=== PATIENT | female | born 2005 | race Caucasian/White ===

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

== ENCOUNTER 2025-08-04 14:22 | Outpatient (AMB) | payer OTHER, SELFPAY ==
--- NOTE | 2025-08-04 14:24 | AM.OFFWIN_ITS ---
Intake Vital Signs 08/04/25 14:25 Weight 125 lb BP 120/78 Blood Pressure Location Lt brachial Position Sitting Respiration 16 Pulse 66 Pulse Source Pulse Oximeter Temp 97.9 F Temp Source Oral Pulse Oximetry (%) 99 Oxygen Delivery Method Room Air Intake Visit Reasons: kerwin herring Allergies No Known Allergies Allergy (Verified 08/04/25 16:11) Medication List - Last Reconciled 08/04/25 by Stephen Almazan MD No Known Home Meds HPI ep nima HPI Details History of Present Illness The patient is a 20-year-old female presenting with the need for immunization status evaluation. And physical exam for [facility] Missing Immunization Status: - The patient reported uncertainty about her immunization status for multiple vaccines. - Vaccines discussed include Tdap, MMR, Hepatitis B, and Varicella. - A blood test for vaccine titers was pr oposed to determine immunity. - The patient expressed a need for proof of completed immunizations for school and volunteering requirements. Medical History: - No medical problems reported. - No known allergies to medications or o ther substances. Social History: - The patient is currently attending [employer]. 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 - The patient denied experiencing nausea , vomiting, diarrhea, constipation, chest pain, or shortness of breath. Health Maintenance - lab test order to evaluate titers for immunizations Medications - The patient reported taking no medicat ions. 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 Patient Instructions - Return for blood test to check vaccina tion status, preferably tomorrow. - Contact the office by the end of next week to inquire if the immunization report is ready. - Directions provided for proceeding to the location for the blood test. Review of Systems - General: No fever no chills - Neurological: No headaches no dizzin ess - Ear nose throat: No sore throat no hearing difficulty no ear pain - Cardiovascular: No syncope, no chest pain, no palpitations - Gastrointestinal: No nausea vomiting or diarrhea - Endocrine: No polyuria polydipsia no heat intolerance - Genitourinary: No dysuria - Skin: No new complaints Physical Exam General: Cooperative, healthy appearing, comfortable, no acute distress Orientation: Patient oriented x3 Limitations: None Head: Normal to inspection Ears: Within normal limit visually Nose: Normal external nose present Face and sinus: Normal facial exam Eyes: Appearance normal, extraocular movement intact pupils reactive Neck: Normal visual inspection and supple Respiratory: Normal respiratory effort and able to speak in complete sentences. Clear to auscultation, no stridor Cardiovascular: S1 and S2 RRR GI: Normal to inspection. Soft to palpation and nontender Skin: Turgor normal, no acute findings Neuro: Patient oriented x3, motor sensory intact, balance intact, tandem pass Extremities: Normal to inspection Physical Exam Vital Signs: Last Vital Signs Temp 97.9 F 08/04/25 14:25 Pulse 66 08/04/25 14:25 Resp 16 08/04/25 14:25 BP 120/78 08/04/25 14:25 Pulse Ox 99 08/04/25 14:25 Oxygen Delivery Method Room Air 08/04/25 14:25 Assessment & Plan Assessment & Plan (1) Encounter for general adult medical examination without abnormal findings: Code(s): Z00.00 - Encounter for general adult medical examination without abnormal findings (2) Immunizations incomplete: Code(s): Z28.39 - Other underimmunization status Plan History of Present Illness The patient is a 20-year-old female presenting with the need for immunization status evaluation. And physical exam for [facility] Missing Immunization Status: - The patient reported uncertainty about her immunization status for multiple vaccines. - Vaccines discussed include Tdap, MMR, Hepatitis B, and Varicella. - A blood test for vaccine titers was proposed to determine immunity. - The patient expressed a need for proof of completed immunizations for school and volunteering requirements. Medical History: - No medical problems reported. - No known allergies to medications or other substances. Social History: - The patient is currently attending college. 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 - The patient denied experiencing nausea, vomiting, diarrhea, constipation, chest pain, or shortness of breath. Health Maintenance - lab test order to evaluate titers for immunizations Medications - The patient reported taking no medications. 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 Patient Instructions - Return for blood test to check vaccination status, preferably tomorrow. - Contact the office by the end of next week to inquire if the immunization report is ready. - Directions provided for proceeding to the location for the blood test. Orders: Orders Mumps Virus IgG Antibody Today Z00.00 - Encounter for general adult medical examination without abnormal findings, Z28.39 - Other underimmunization status Rubella IgG Antibody Today Z00.00 - Encounter for general adult medical examination without abnormal findings, Z28.39 - Other underimmunization status Rubeola IgG (Measles) Today Z00.00 - Encounter for general adult medical examination without abnormal findings, Z28.39 - Other underimmunization status Hepatitis B Surface Antibody Today Z00.00 - Encounter for general adult medical examination without abnormal findings, Z28.39 - Other underimmunization status Tetanus Antitoxiod Antibody Today Z28.39 - Other underimmunization status T Spot TB Today Z00.00 - Encounter for general adult medical examination without abnormal findings, Z28.39 - Other underimmunization status Varicella IgG Antibody Today Z00.00 - Encounter for general adult medical examination without abnormal findings, Z28.39 - Other underimmunization status Coding Level of Care Code Sports/Work/School Physical Diagnoses Encounter for general adult medical examination without abnormal findings Z00.00 Immunizations incomplete Z28.39
[2025-08-04 14:25] VITALS: BP 120/78; PULSE 66; RESP 16; TEMP 36.6; O2SAT 99
--- OUTSIDE RECORDS SUMMARY | 2025-08-04 16:41 | XMS_ITS | Clinical Summary ---
Author Organization [facility] Address [address] [place], [place] [address] Phone Care Team Providers Care Sql Database Programmer Name Role Phone Unknown, Unknown Primary Care Provider Quentin metzger Social History Tobacco Use Types Packs/Day Years Used Date Smoking Tobacco: Never Assessed Education Answer Date Recorded Are you interested in more education? Not on prosper e 03/29/2023 Are you concerned about learning? Not on file 03/29/2023 No 03/29/2023 No 03/29/2023 Digital Access Answer Date Recorded No 04/29/2023 No 04/29/2023 No 04/29/2023 Reliable internet access at home? Not on file 04/29/2023 Device with a working camera? Not on file Comments Unknown Sex and Gender Information Value Date Recorded Sex Assigned at Not on file Legal Sex Female 8:44 PM EDT Gender Identity Not on file Sexual Orientation Not on file Plan of Treatment Not on file Medical Devices Not on file Insurance [employer] [facility] [employer] * Guarantor: DERICK ARAGON Account Type Relation to Patient Date of Phone Billing Address Personal/Family Father [address] [employer] Care Teams Sql Database Programmer Relationship Specialty Start Date End Date Unknown, Unknown, PCP - General 01/22/19 Additional Source Comments The information contained in this document represents components of the legal health record. It is not the complete legal health record.[facility]
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
--- OUTSIDE RECORDS SUMMARY | 2025-08-04 16:41 | XMS_ITS | Clinical Summary ---
Author Organization [facility] it Address [address] [place] [address] Care Team Providers Care Student Success Coach Name Role Phone Unavailable Primary Care Provider Unavailabl e Social History Tobacco Use Types Packs/Day Years Used Date Smoking Tobacco: Never Assessed Comments Unknown Sex and Gender Information Value Date Recorded Sex Assigned at Not on file Legal Sex Female 8:28 PM EST Gender Identity Not on file Sexual Orientation Not on file Plan of Treatment Health Maintenance Due Date Last Done Comments Gonorrhea/Chlamydia Screening 2004 HPV Vaccines (1 - 3-dose series) 2019 Meningococcal B Vaccine (1 o f 2 - Standard) 2020 Annual Well Child Visit (3-2 1 years old) 11/03/2022 HIV Screening 11/03/2022 Hepatitis C Screening 11/03/2022 Social Influencers of Health Screening 11/03/2022 DTaP,Tdap,and Td Vaccines (1 - Tdap) 2023 Hepatitis B Vaccines (1 of 3 - 19+ 3-dose series) 2023 Depression Screening 12/02/2024 Cervical Cancer Screening: P ap Smear 2025 COVID-19 Vaccine (1 - 2023-2 5 season) 2025 Influenza Vaccine (#1) 2025 HIB Vaccines Aged Out No longer eligi ble based on patient's age to complete this topic Hepatitis A Vaccines Aged Out No long er eligible based on patient's age to complete this topic IPV Vaccines Aged Out No longer eligi ble based on patient's age to complete this topic MMR Vaccines Aged Out No longer eligi ble based on patient's age to complete this topic Meningococcal ACWY Vaccine Aged Out N o longer eligible based on patient's age to complete this topic Pneumococcal Vaccine: Pediat rics (0 to 5 Years) and At-Risk Patients (6 to 49 Years) Aged Out No longer eligible b ased on patient's age to complete this topic RSV Immunization Patients Un temo 20 months Aged Out No longer eligible b ased on patient's age to complete this topic Varicella Vaccines Aged Out No longer eligible based on patient's age to complete this topic
--- OUTSIDE RECORDS SUMMARY | 2025-08-04 16:41 | XMS_ITS | Encounter Summary ---
Author Organization [facility] Address [address] [place] [phone] Phone Care Team Providers Care Desk Editor Name Role Phone Adonis Herring MD Primary Care Provider [phone] Encounter Details Date Type Department Care Team (Late st Contact Info) Description 07/10/2017 Conversion Encounter [facility] Pediatrics - [address], [address] [place] [address] Clarissa Bowie NP [address] [place] [address] Social History Tobacco Use Types Packs/Day Years Used Date Smoking Tobacco: Never Assessed Comments Unknown Sex and Gender Information Value Date Recorded Sex Assigned at Male 11/09/2024 10:45 AM EST Legal Sex Female 10:45 PM EST Gender Identity Male 11/09/2024 10:45 AM EST Sexual Orientation Choose not to answer 11/18/20 24 1:20 PM EST documented as of this encounter Plan of Treatment Not on file documented as of this encounter Visit Diagnoses Not on filedocumented in this encounter Care Teams Desk Editor Relationship Specialty Start Date End Date Adonis Herring MD [address] [place] [address] PCP - General Pediatrics 03/27/21 documented as of this encounter
== END 2025-08-04 14:41 | disposition home or self-care (01) ==
PROVIDERS: Visit Provider Internal Medicine
DX: Z28.39 Other underimmunization status (principal)

== ENCOUNTER 2025-08-04 14:22 | Outpatient (REF) | payer OTHER, SELFPAY ==
[2025-08-05 08:03] LABS: HBS Num1 1.68 mIU/mL (0-7.99); ~Hepatitis B Surface Antibody NONREACTIVE (Nonreactive)
[2025-08-05 16:14] LABS: Rubeola IgG (Measles) >300.00 AU/mL
[2025-08-07 10:59] LABS: Tetanus Antitoxiod Antibody 0.18 IU/mL
== END 2025-08-04 14:23 | disposition home or self-care (01) ==
LOC: HO.HMGCLDS 14:22
PROVIDERS: Visit Provider Internal Medicine
DX: Z00.00 Encounter for general adult medical examination without abnormal findings (principal); Z28.39 Other underimmunization status; Z11.1 Encounter for screening for respiratory tuberculosis; Z11.59 Encounter for screening for other viral diseases
CPT/HCPCS: 36415; 86706; 86735; 86762; 86765; 86774; 86787